=== PATIENT | male | born 1980 | race African-American/Black ===

== ENCOUNTER 2016-09-10 16:49 | Emergency (ER) | payer SELFPAY ==
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
[2016-09-10 18:00] VITALS: BP 156/80
[2016-09-10] MEDS ORDERED: DIPHTH,PERTUSS(ACELL),TET TOX 0.5 ML DISP.SYRIN. VAX IM ONE ×2 (18:00→19:30)
[2016-09-10] MEDS ORDERED: IV NORMAL SALINE 1,000ML 1,000 ML IV ONE (18:00)
[2016-09-10 18:05] LABS: BASO # 0.1 x10^3/uL (0.0-0.2); BASO % 0 % (0-3); EOS % 0 % (0-3); HEMATOCRIT 40.6 % (39.0-53.0); HEMOGLOBIN 13.6 g/dL (13.0-17.5); LYMPH # 0.9 x10^3/uL (1.0-4.8); LYMPH % 5 % (24-48); MEAN CORPUSCULAR HEMOGLOBIN 29 pg (25-35); MEAN CORPUSCULAR HGB CONC 34 g/dL (31-37); MEAN CORPUSCULAR VOLUME 87 fL (79-100); MONO # 1.4 x10^3/uL (0.0-1.1); MONO % 7 % (0-9); NEUT # 17.1 x10^3uL (1.8-7.7); NEUT % 88 % (31-73); PLATELET COUNT 246 x10^3/uL (140-400); RED BLOOD COUNT 4.67 x10^6/uL (4.30-5.70); RED CELL DISTRIBUTION WIDTH 15.4 % (11.5-14.5); WHITE BLOOD COUNT 19.6 x10^3/uL (4.0-11.0)
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
[2016-09-10 18:43] LABS: ALBUMIN 4.1 g/dL (3.4-5.0); ALBUMIN/GLOBULIN RATIO 1.1 (1.0-1.7); CALCIUM 9.2 mg/dL (8.5-10.1); GFR 101.2; POTASSIUM 3.9 mmol/L (3.5-5.1); TOTAL BILIRUBIN 0.6 mg/dL (0.2-1.0); TOTAL PROTEIN 7.7 g/dL (6.4-8.2)
[2016-09-10] MEDS ORDERED: AMOX1TAB61 PO (19:26)
[2016-09-10] MEDS ORDERED: HYDR-79 PO (19:26)
[2016-09-10 19:35] LABS: BARBITURATES NEG (NEG); BENZODIAZEPINES NEG (NEG); CANNABINOIDS POS (NEG); COCAINE NEG (NEG); METHADONE NEG (NEG); OPIATES NEG (NEG); PHENCYCLIDINE POS (NEG)
[2016-09-10 19:36] LABS: AMPHETAMINE/METHAMPHETAMINE NEG (NEG)
[2016-09-10] MEDS ORDERED: CEFTRIAXONE IM 1 GM VIAL. IM ONE (19:45)
[2016-09-10 19:48] LABS: BILIRUBIN,URINE NEG (NEG); CLARITY,URINE CLEAR; COLOR,URINE AMBER; GLUCOSE,URINE NEG (NEG); NITRITE,URINE NEG (NEG); UROBILINOGEN,URINE 0.2 mg/dL (0.2 mg/dL)
[2016-09-10 19:49] LABS: AMORPHOUS SEDIMENT,UR PRESENT /HPF; BACTERIA,URINE 0 /HPF (0-FEW); RBC,URINE OCC /HPF (0-2); SQUAMOUS EPITHELIAL CELL,UR OCC /LPF; WBC,URINE OCC /HPF (0-4)
[2016-09-10 20:51] LABS: % BANDS 4 % (0-9); % LYMPHS 7 % (24-48); % MONOS 12 % (0-10); % SEGS 77 % (35-66)
[2016-09-10 20:52] LABS: PLT ESTIMATE ADEQUATE (ADEQUATE)
[2016-09-10 20:53] LABS: OVALOCYTES OCC; POLYCHROMASIA SLIGHT
[2016-09-10 20:54] LABS: HYPOCHROMIA SLIGHT; TOXIC GRANULATION SLIGHT
--- NOTE | 2016-09-11 07:53 | RAD ---
Right hand, 3 views, 09/10/2016: History: Hand injury, deformity There is a fracture of the distal shaft of the third metacarpal. There is mild volar angulation of the major distal fracture fragment. Deformity of the proximal third metacarpal shaft is likely old. There are additional deformities of the distal fifth and second metacarpals compatible with an old healed fractures. The lunate bone is deformed, probably due to old trauma. There is degenerative change at the radiocarpal joint and at the intracarpal articulations. There is moderate soft tissue swelling over the dorsum of the hand in the metacarpal region. IMPRESSION: 1. Acute third metacarpal fracture. 2. Several other metacarpal and lunate deformities as described above, compatible with old fractures.
--- NOTE | 2016-09-11 07:54 | RAD ---
AP chest, 09/10/2016: History: Injury, altered mental status The heart size is normal. The lungs are clear. There is no evidence of pleural fluid or pneumothorax. IMPRESSION: No acute cardiopulmonary abnormality is detected.
== END 2016-09-10 19:50 | disposition home or self-care (01) ==
LOC: ER 16:49
DX: F10.129 Alcohol abuse with intoxication, unspecified (principal); S62.91XA Unspecified fracture of right hand, initial encounter for closed fracture; R41.82 Altered mental status, unspecified; D72.829 Elevated white blood cell count, unspecified; F12.10 Cannabis abuse, uncomplicated; Z72.0 Tobacco use; X58.XXXA Exposure to other specified factors, initial encounter; Y93.89 Activity, other specified; Y99.8 Other external cause status; Y92.89 Other specified places as the place of occurrence of the external cause
CPT/HCPCS: 36415; 70450; 70486; 71010; 72125; 73130; 80053; 80305; 80320; 81001; 85007; 85027; 90471; 90715; 96360; 96372; 99285; J0696; G0480; G0481; J7030

== ENCOUNTER 2016-10-21 15:23 | Emergency (ER) | payer SELFPAY ==
[~2016-10-21] VITALS: Ht 170.2 cm; Wt 71.2 kg
[~2016-10-21 15:23] MED LIST: AMOX1TAB61 PO; HYDR-79 PO
[2016-10-21] MEDS ORDERED: FAMOTIDINE 20 MG/2 ML VIAL IVP ONE (16:15)
[2016-10-21] MEDS ORDERED: ONDANSETRON PF 4 MG/2 ML VIAL. IV ONE (16:15)
[2016-10-21 16:22] LABS: BASO # 0.2 x10^3/uL (0.0-0.2); BASO % 1 % (0-3); EOS % 0 % (0-3); HEMATOCRIT 39.4 % (39.0-53.0); LYMPH # 1.2 x10^3/uL (1.0-4.8); LYMPH % 8 % (24-48); MEAN CORPUSCULAR HEMOGLOBIN 29 pg (25-35); MEAN CORPUSCULAR HGB CONC 33 g/dL (31-37); MEAN CORPUSCULAR VOLUME 86 fL (79-100); MONO # 0.6 x10^3/uL (0.0-1.1); MONO % 4 % (0-9); NEUT # 13.8 x10^3uL (1.8-7.7); NEUT % 88 % (31-73); PLATELET COUNT 233 x10^3/uL (140-400); RED BLOOD COUNT 4.55 x10^6/uL (4.30-5.70); RED CELL DISTRIBUTION WIDTH 14.6 % (11.5-14.5); WHITE BLOOD COUNT 15.8 x10^3/uL (4.0-11.0)
[2016-10-21] MEDS ORDERED: PROMETHAZINE 25 MG in IV NORMAL SALINE 50ML 50 ML IV PRN (16:30)
[2016-10-21] MEDS ORDERED: MVI, ADULT NO.4 WITH VIT K 10 ML, FOLIC ACID SYRINGE for ER 1 MG, THIAMINE 100 MG in IV... IV SCH ×4 (16:30)
[2016-10-21 16:44] LABS: ALBUMIN 3.8 g/dL (3.4-5.0); CALCIUM 8.8 mg/dL (8.5-10.1); CREATININE 0.9 mg/dL (0.7-1.3); DIRECT BILIRUBIN 0.1 mg/dL (0.0-0.2); GFR 114.3; POTASSIUM 3.6 mmol/L (3.5-5.1); TOTAL BILIRUBIN 0.2 mg/dL (0.2-1.0)
[2016-10-21 17:00] LABS: BILIRUBIN,URINE NEG (NEG); CLARITY,URINE CLOUDY; COLOR,URINE YELLOW; GLUCOSE,URINE NEG (NEG); NITRITE,URINE NEG (NEG); UROBILINOGEN,URINE 0.2 mg/dL (0.2 mg/dL)
[2016-10-21 17:09] LABS: BACTERIA,URINE 0 /HPF (0-FEW); SQUAMOUS EPITHELIAL CELL,UR FEW /LPF
[2016-10-21 17:25] LABS: BARBITURATES NEG (NEG); BENZODIAZEPINES NEG (NEG); CANNABINOIDS POS (NEG); COCAINE NEG (NEG); METHADONE NEG (NEG); OPIATES NEG (NEG); PHENCYCLIDINE NEG (NEG)
[2016-10-21 17:26] LABS: AMPHETAMINE/METHAMPHETAMINE NEG (NEG)
[2016-10-21] MEDS ORDERED: SUMAtriptan. 6 MG/0.5 ML VIAL SQ ONE (18:00)
[2016-10-21] MEDS ORDERED: diphenhydrAMINE 50 MG/ML VIAL IVP ONE (18:00)
[2016-10-21] MEDS ORDERED: HALOPERIDOL LACT 5 MG/ML VIAL. IVP ONE (18:00)
--- NOTE | 2016-10-21 18:05 | PHYS DOC ---
General Chief Complaint: HEADACHE Stated Complaint: HEADACHE Time Seen by MD: 15:43 Source: patient, EMS Exam Limitations: no limitations Problems: History of Present Illness Initial Comments Patient is a 36-year-old male brought to the ED by EMS for migraine headache. Patient states he awoke with a severe right sided migraine consistent with his prior headaches. He has a long migraine history and states this was a typical recurrence with right-sided cephalgia no aura mild blurred vision initially and nausea vomiting 1 this morning. Family was concerned they thought there may be blood in emesis to the patient was sent for further evaluation. In the ED patient has had no nausea or vomiting complains of severe right-sided cephalgia described as throbbing sharp and stabbing E worse with movement bright lights and noises better with rest. Qiqw-hpe-skmeuto meds at home have not helped. He denies focal neurologic symptoms no unexplained weight loss or recent head trauma no neck stiffness fever or rash. Timing/Duration: 4-6 hours Severity: severe Modifying Factors: improves with medication, worse with movement, improves with rest Associated Symptoms: headaches, nausea/vomiting Allergies: Coded Allergies: No Known Drug Allergies (Unverified , 10/21/16) Past Medical History Medical History: other (migraine) Surgical History: noncontributory Social History Smoker: cigarettes Alcohol: occasionally Drugs: marijuana Review of Systems Constitutional: denies chills, denies fever, malaise EENTM: see HPI Respiratory: denies cough, denies shortness of breath, denies wheezing Cardiovascular: denies chest pain, denies palpitations, denies syncope Gastrointestinal: denies abdominal pain, denies diarrhea, nausea, vomiting ( physical the) Genitourinary: denies dysuria, denies frequency, denies hematuria Musculoskeletal: denies back pain, denies joint swelling, denies neck pain Psychiatric/Neurological: headache, denies numbness, denies paresthesia, denies seizure, denies tingling, denies weakness Hematologic/Lymphatic: denies blood clots, denies easy bleeding, denies easy bruising Physical Exam General Appearance: WD/WN, mild distress Eyes: bilateral eye normal inspection, bilateral eye PERRL, bilateral eye EOMI Ear, Nose, Throat: hearing grossly normal, normal ENT inspection, normal pharynx Neck: non-tender, supple Respiratory: chest non-tender, normal breath sounds Cardiovascular: normal peripheral pulses, regular rate, rhythm Gastrointestinal: non tender, soft (his hyperglycemia without acidosis) Back: no CVA tenderness, no vertebral tenderness Extremities: non-tender, normal inspection Neurologic/Psychiatric: seconds grader II-XII nml as tested, no motor/sensory deficits ( well), alert, oriented x 3 Skin: normal color, warm/dry Orders, Labs, Meds Reassuring labs and urine studies. I discussed further evaluation and treatment options, patient requests to be treated and discharged home he states his girlfriend can come pick him up. Departure Time of Disposition: 18:19 Disposition: 01 HOME, SELF-CARE Diagnosis: migraine headache, marijuana abuse Condition: STABLE Patient Instructions: Marijuana Abuse and Chemical Dependency, Recurrent Migraine Headache Additional Instructions: Discontinue substance abuse seek medical assistance if necessary. Rest, no strenuous activity. No driving or operating machinery while under the influence of sedative medications. Aggressive hydration with Gatorade or water. Follow-up with your doctor in 2-3 days for recheck. Return to the ED with new or changing symptoms. STEFANIE KAPOOR DO Oct 21, 2016 18:05
[2016-10-21 18:27] VITALS: BP 139/72
[2016-10-21 21:10] LABS: % LYMPHS 4 % (24-48); % MONOS 3 % (0-10); % SEGS 93 % (35-66)
[2016-10-21 21:11] LABS: PLT ESTIMATE ADEQUATE (ADEQUATE)
[2016-10-21 21:14] LABS: TARGET CELLS FEW
== END 2016-10-21 18:26 | disposition home or self-care (01) ==
LOC: ER 15:23
DX: G43.909 Migraine, unspecified, not intractable, without status migrainosus (principal); F12.10 Cannabis abuse, uncomplicated; F17.210 Nicotine dependence, cigarettes, uncomplicated
CPT/HCPCS: 36415; 80048; 80076; 80305; 80320; 81001; 82550; 83735; 84484; 85007; 85027; 96365; 96367; 96372; 96375; 99285; J1200; J1630; J2405; J2550; J3030; S0028; G0480; G0481; J7030

== ENCOUNTER 2016-10-30 18:34 | Emergency (ER) | payer SELFPAY ==
[~2016-10-30] VITALS: Ht 170.2 cm; Wt 71.3 kg
--- NOTE | 2016-10-30 18:42 | ED.ADGEN ---
Past History Past Medical History: No Pertinent History Past Surgical History: No Surgical History Alcohol Use: Heavy Drug Use: Marijuana Adult General Chief Complaint Chief Complaint Wrist pain [facility] HPI Patient is a 36 year old for can [place] male who presents with right wrist pain. His son was going through a door and he was trying to reach for the same time the door hit him in the right hand he started having right snuffbox tenderness and pain around his thumb. 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 He denies any numbness or tingling or weakness. He states it's fine unless he stranding to move around a lot and this started bothering him. He denies any other injuries. He has had a third metacarpal fracture in the past. Review of Systems Review of Systems Constitutional: Denies fever or chills [] Eyes: Denies change in visual acuity, redness, or eye pain [] HENT: Denies nasal congestion or sore throat [] Respiratory: Denies cough or shortness of breath [] Cardiovascular: No additional information not addressed in HPI [] GI: Denies abdominal pain, nausea, vomiting, bloody stools or diarrhea [] : Denies dysuria or hematuria [] Musculoskeletal: Denies back pain, positive for right hand pain Integument: Denies rash or skin lesions [] Neurologic: Denies headache, focal weakness or sensory changes [] Endocrine: Denies polyuria or polydipsia [] Allergies Allergies Allergies Coded Allergies Type Severity Reaction Last Updated Verified No Known Drug Allergies 10/21/16 No Physical Exam Physical Exam Constitutional: Well developed, well nourished, no acute distress, non-toxic appearance. [] HENT: Normocephalic, atraumatic, bilateral external ears normal, oropharynx moist, no oral exudates, nose normal. [] Eyes: PERRLA, EOMI, conjunctiva normal, no discharge. [] Neck: Normal range of motion, no tenderness, supple, no stridor. [] Cardiovascular:Heart rate regular rhythm, no murmur [] Lungs & Thorax: Bilateral breath sounds clear to auscultation [] Abdomen: Bowel sounds normal, soft, no tenderness, no masses, no pulsatile masses. [] Skin: Warm, dry, no erythema, no rash. [] Back: No tenderness, no CVA tenderness. [] Extremities: Tender palpation over the snuffbox on the right wrist, able to supinate and pronate right upper chimney, able to do opposition, able to flex extend adduct and abduct fingers, old hand deformity from a third metacarpal fracture noted, no cyanosis, clubbing noted on bilateral hands, ROM intact, no edema. Sensation and motor intact to radial, ulnar, median nerve distribution of right hand. Neurologic: Alert and oriented X 3, normal motor function, normal sensory function, no focal deficits noted. [] Psychologic: Affect normal, judgement normal, mood normal. [] Current Patient Data Vital Signs Vital Signs Date Time Temp Pulse Resp B/P (MAP) Pulse Ox O2 Delivery O2 Flow Rate FiO2 10/30/16 18:58 98.1 60 20 97 Room Air EKG EKG [] Radiology/Procedures Radiology/Procedures 3 views of the right wrist in addition to 3 views of the right hand shows an old third metacarpal fracture, no other obvious deformities, soft tissue abnormalities or foreign bodies noted, as interpreted by me. Course & Med Decision Making Course & Med Decision Making Pertinent Labs and Imaging studies reviewed. (See chart for details) We'll place him in a Velcro for splint and him follow-up in a week for x-rays. I am worried about a possible scaphoid fracture as he is tender to palpation in the snuffbox. He can use Advil, Tylenol for pain control. Return precautions given. He does not have a primary care physician's return back to ER in a week for x-rays. He is agreeable to the plan and being discharged in stable condition this time. Splint check. After the Velcro volar splint was placed in the right hand is Refill and sensation was intact to light touch. Final Impression Final Impression Snuffbox tenderness on the right Problems: Dragon Disclaimer Dragon Disclaimer This electronic medical record was generated, in whole or in part, using a voice recognition dictation system. MICHELLE SMALLWOOD MD Oct 30, 2016 18:42
[2016-10-30 18:58] VITALS: BP 136/76
--- NOTE | 2016-10-31 07:59 | RAD ---
Right hand, 3 views, 10/30/2016: History: Injury, pain Comparison is made to a study from 09/10/2016. There is an old fracture of the third metacarpal with extensive callus at the fracture site. There is volar angulation of the distal fracture fragment as also evident on the previous study. There is a persistent lucency at the fracture site suggesting incomplete healing. A refracture is less likely. There is mild deformity of the second metacarpal head compatible with an old fracture with secondary degenerative change at the second MCP joint. There is also deformity of the distal fifth metacarpal compatible with an old healed fracture. There is moderate soft tissue swelling over the dorsum of the hand in the metacarpal region. Right wrist, 3 views, 10/30/2016: There is considerable degenerative change at the wrist with cystic and sclerotic changes involving multiple carpal bones. There is deformity of the lunate bone compatible with an old nonunited fracture. No acute carpal bone fracture is detected. IMPRESSION: 1. Incompletely healed old third metacarpal fracture. A refracture through the old fracture site cannot be excluded. 2. Other metacarpal and lunate deformities as described above compatible with old fractures. 3. Moderate degenerative change at the wrist.
== END 2016-10-30 20:20 | disposition home or self-care (01) ==
LOC: ER 18:34
DX: M25.531 Pain in right wrist (principal); F12.10 Cannabis abuse, uncomplicated; F10.10 Alcohol abuse, uncomplicated; W22.8XXA Striking against or struck by other objects, initial encounter; Y93.89 Activity, other specified; Y99.8 Other external cause status; Y92.89 Other specified places as the place of occurrence of the external cause
CPT/HCPCS: 29125; 73110; 73130; 99284-25